=== PATIENT | male | born 1980 | race Caucasian/White ===

== ENCOUNTER 2016-12-29 10:20 | Emergency (ER) | payer OTHER ==
--- NOTE | 2016-12-29 14:43 | RAD ---
HISTORY: Left lower leg weakness and numbness COMPARISONS: Left lower leg numbness TECHNIQUE: The following sequences were obtained of the head: Sagittal T1-weighted images, axial T2-weighted images, axial FLAIR images, axial susceptibility weighted images, axial T1-weighted images. Additionally, axial diffusion-weighted images were obtained with calculated apparent diffusion coefficients. FINDINGS: HEMORRHAGE/INFARCT: There is no hemorrhage or acute infarct. MASSES/SHIFT: There is no mass or shift. EXTRA-AXIAL SPACES/MENINGES: There are no extra-axial fluid collections. SULCI AND VENTRICLES: The sulci and ventricles are normal in size and position for the patient's stated age. CEREBRUM: There are no focal parenchymal abnormalities. BRAINSTEM: There are no focal parenchymal abnormalities. CEREBELLUM: There are no focal parenchymal abnormalities. The cerebellar tonsils are normal in size and position. SELLA: The sella is normal. PINEAL: The pineal region is clear. CP ANGLE/TEMPORAL BONES: The labyrinthine structures are grossly normal. VESSELS: Normal flow-voids are noted within the visualized vertebral vasculature. DIFFUSION ABNORMALITIES: There are no diffusion abnormalities. PARANASAL SINUSES/MASTOIDS: There is mucosal thickening of ethmoid air cells, with opacities in the right frontal sinus and a mucus retention cysts of the right maxillary sinus. There is an air-fluid level within the left maxillary sinus. ORBITS: The orbits are unremarkable. BONES AND SOFT TISSUE: Unremarkable OTHER: None IMPRESSION: 1. MODERATE SINUS MUCOSAL INFLAMMATORY DISEASE, WITH AN AIR-FLUID LEVEL IN THE LEFT MAXILLARY. IN THE CORRECT CLINICAL SETTING, THIS MAY REPRESENT ACUTE SINUSITIS 2. OTHERWISE, UNREMARKABLE MRI OF THE BRAIN
[2016-12-29 15:08] VITALS: BP 132/85
--- NOTE | 2016-12-29 15:49 | ED ---
Ana Nye Rebecca, scribed for Edgard Torres MD on 12/29/16 at 1317 . Neurological HPI - HPI Summary HPI Summary: Pt is a 36 y/o M who presents to ED c/o LLE weakness and numbness. Sx began suddenly this morning upon waking up, at 0730, and have been constant since onset. Reports sensation as "like when your arm or leg falls asleep" on the dorsal side from his knee into the calf, and states that "when I want to walk it just ayana." Notes difficulty standing on toes on L foot. Sx are exclusively present when walking. Sx aggravated by walking, alleviated by sitting. Additionally c/o SALDAÑA, ranked 6/10, characterized as a typical migraine and diffusely located. Denies any pain in the LLE. Denies tingling in LLE, numbness in any other extremities and slurred speech. Reports that HAs are not uncommon. Pt was evaluated by [facility] earlier today where he was given Toradol, which alleviated SALDAÑA. - History of Current Complaint Chief Complaint: EDNeurologicalDeficit Stated Complaint: LT LEG TINGLES/HEADACHE Time Seen by Provider: 12/29/16 13:16 Hx Obtained From: Patient Onset/Duration: Sudden Onset, Started hours ago - 0730, Still Present Timing: Constant Onset Severity: Moderate Current Severity: Moderate Neurological Deficit Location: LLE - Numbness and weakness Pain Intensity: 6 Pain Scale Used: 0-10 Numeric Character: Typical Migraine Aggravating: Exertion - Walking Alleviating: Rest - Sitting down Associated Signs and Symptoms: Positive: Headache. Negative: Impaired Speech - Allergy/Home Medications Allergies/Adverse Reactions: Allergies Allergy/AdvReac Type Severity Reaction Status Date / Time No Known Allergies Allergy Verified 07/17/15 15:30 PMH/Surg Hx/FS Hx/Imm Hx Endocrine/Hematology History: Denies: Hx Diabetes Cardiovascular History: Reports: Hx Hypertension - Surgical History Surgery Procedure, Year, and Place: L hand fusion. R thumb amputation Infectious Disease History: No Infectious Disease History: Denies: Traveled Outside the [place] in Last 30 Days - Family History Known Family History: Positive: Cardiac Disease - father, Hypertension - father , Other - both parents - Social History Alcohol Use: None Substance Use Type: Reports: None, Other Substance Use Comment - Amount & Last Used: pt currently in recovery for opiate addiction Smoking Status (MU): Heavy Every Day Tobacco Smoker Type: Cigarettes Amount Used/How Often: 1 pack daily Review of Systems Negative: Arthralgia - Denies pain in LLE Neurological: Other - Denies tingling Positive: Headache, Weakness - LLE, Numbness - LLE; Denies numbness in any other extremities. Negative: Slurred Speech All Other Systems Reviewed And Are Negative: Yes Physical Exam Triage Information Reviewed: Yes Vital Signs On Initial Exam: Initial Vitals Temp Pulse Resp BP Pulse Ox 98.3 F 73 18 155/95 100 12/29/16 10:23 12/29/16 10:23 12/29/16 10:23 12/29/16 10:23 12/29/16 10:23 Vital Signs Reviewed: Yes Appearance: Positive: Well-Appearing, No Pain Distress Skin: Positive: Warm, Skin Color Reflects Adequate Perfusion, Dry Head/Face: Positive: Normal Head/Face Inspection Eyes: Positive: Normal ENT: Positive: Normal ENT inspection Neck: Positive: Supple, Nontender Respiratory/Lung Sounds: Positive: Clear to Auscultation, Breath Sounds Present Cardiovascular: Positive: RRR Abdomen Description: Positive: Nontender, Soft Bowel Sounds: Positive: Present Musculoskeletal: Positive: Other - Some weakness to plantar flexion of the L foot; No clonus Neurological: Positive: Sensory/Motor Intact, Alert, Oriented to Person Place, Time, CN Intact II-III. Negative: Reflexes Intact - Brisk reflex of the L foot - Paulina Coma Scale Coma Scale Total: 15 Diagnostics - Vital Signs Vital Signs Temp Pulse Resp BP Pulse Ox 12/29/16 12:48 99.8 F 12/29/16 12:34 73 16 145/82 99 12/29/16 11:27 98.4 F 71 16 150/85 100 12/29/16 10:23 98.3 F 73 18 155/95 100 - Laboratory Lab Statement: Any lab studies that have been ordered have been reviewed, and results considered in the medical decision making process. - Radiology Brain MRI Radiology Interpretation Completed By: Radiologist - 1. MODERATE SINUS MUCOSAL INFLAMMATORY DISEASE, WITH AN AIR-FLUID LEVEL IN THE LEFT MAXILLARY. IN THE CORRECT CLINICAL SETTING, THIS MAY REPRESENT ACUTE SINUSITIS 2. OTHERWISE, UNREMARKABLE MRI OF THE BRAIN Re-Evaluation - Re-Evaluation First Eval Re-Evaluation Time: 15:01 Change: Unchanged Comment: Discussed results of MRI with patient. Course/Dx - Course Assessment/Plan: MDM: Pt is a 36 y/o M who presents to ED c/o LLE numbness and weakness when walking since 0730 this morning. Additoinally c/o SALDAÑA (not uncommon , alleviated by Toradol, administered [employer]). Denies tingling, pain in the LLE, sx in any other extremities and slurred speech. Discussed care of pt with Dr. Humphrey, neurologist, who recommended an MRI. Pt will be D/C to home with a Dx of left leg weakness and a followup with his PCP if needed. If his weakness does not resolve on its own he may need an MRI of the LS which he was offered today but refused. - Diagnoses Provider Diagnoses: Left leg weakness - Physician Notifications Discussed Care of Patient With: Dr. Humphrey, neurologist, who recommended an MRI. Time Discussed With Above Provider: 13:36 Discharge - Discharge Plan Condition: Stable Disposition: HOME Patient Education Materials: Weakness (ED) Referrals: Darwin Singh DO [Primary Care Provider] - If Needed (Follow up in 1 or 2 days, if symptoms do not improve. ) The documentation as recorded by the Ana foley Rebecca accurately reflects the service I personally performed and the decisions made by me, Edgard Torres MD.
== END 2016-12-29 15:13 | disposition home or self-care (01) ==
LOC: ED 10:20
DX: R53.1 Weakness (principal); R51 Headache
CPT/HCPCS: 70551; 99282

== ENCOUNTER 2017-01-04 12:27 | Emergency (ER) | payer OTHER ==
[2017-01-04 12:51] VITALS: BP 160/90
--- NOTE | 2017-01-04 13:48 | UC ---
Headache HPI - HPI Summary HPI Summary: 36 yo male with a two week hx of headaches Has had 4 severe headaches that lasted for hours to days Currently no headache For one week he has had left leg weakness He has also had left leg numbness and tingling the weakness has started to resolve for one week he has had trouble initiating his stream of urination It feels like he has to go and it often takes minutes to start now unable to achieve an erection NO low back pain NO f/c NO tick bite had a normal brain MRI 12/29 currently no pain - History Of Current Complaint Chief Complaint: UCGeneralIllness Stated Complaint: LEFT LEG NUMBNESS,MIGRIANE,URINARY Time Seen by Provider: 01/04/17 13:00 Hx Obtained From: Patient Onset/Duration: Sudden Onset, Lasting Weeks Initially Headache Was: Severe Currently Pain Is: Current Pain Scale(0-10)= - 0 Pain Intensity: 0 Pain Scale Used: 0-10 Numeric Timing: Intermittent, Lasting: - hours to days Character: Throbbing - holocranial Location of Headache: Diffuse Aggravating Factor: Nothing Allevating Factors: Nothing Associated Signs And Symptoms: Positive: Other (Noted In Comments). Negative: Dizziness, Seizure, Nausea, Vomiting, Sinus Pressure, Fever, Neck Pain, Neck Stiffness, Decreased LOC, Visual Changes - Allergies/Home Medications Allergies/Adverse Reactions: Allergies Allergy/AdvReac Type Severity Reaction Status Date / Time No Known Allergies Allergy Verified 07/17/15 15:30 Home Medications: Home Medications Aspirin [Aspirin 81 MG TAB] 81 mg PO DAILY 01/04/17 [History Confirmed 01/04/17] PMH/Surg Hx/FS Hx/Imm Hx Previously Healthy: Yes - hx opiate abuse-sober 4 yrs Endocrine History Of: Denies: Diabetes Cardiovascular History Of: Reports: Hypertension Denies: Pacemaker/ICD - Surgical History Surgical History: Yes Surgery Procedure, Year, and Place: L hand fusion. R thumb amputation - Family History Known Family History: Positive: Cardiac Disease - father, Hypertension - father , Other - both parents - Social History Alcohol Use: None Substance Use Type: None, Other Substance Use Comment - Amount & Last Used: pt currently in recovery for opiate addiction Smoking Status (MU): Heavy Every Day Tobacco Smoker Type: Cigarettes Amount Used/How Often: 1 pack daily Length of Time of Smoking/Using Tobacco: started at age 13 Have You Smoked in the Last Year: Yes - Immunization History Most Recent Tetanus Shot: within 2 years. Review of Systems Constitutional: Negative Skin: Negative Eyes: Negative ENT: Negative Respiratory: Negative Cardiovascular: Negative Gastrointestinal: Negative Genitourinary: Negative Motor: Negative Neurovascular: Negative Musculoskeletal: Negative Neurological: Headache - not currently, Weakness - left leg, Numbness - left leg Psychological: Negative All Other Systems Reviewed And Are Negative: Yes Physical Exam Triage Information Reviewed: Yes Appearance: Well-Appearing, No Pain Distress, Well-Nourished Vital Signs: Initial Vital Signs Temp 99.4 F 01/04/17 12:38 Pulse 77 01/04/17 12:38 Resp 14 01/04/17 12:38 BP 160/90 01/04/17 12:38 Pulse Ox 99 01/04/17 12:38 Eyes: Positive: Conjunctiva Clear, Other: - fundi benign ENT: Positive: Hearing grossly normal. Negative: Nasal congestion, Nasal drainage, Trismus, Muffled/hoarse voice Neck: Positive: Supple, Nontender, No Lymphadenopathy, Other: - no bruits Respiratory: Positive: Lungs clear, Normal breath sounds, No respiratory distress, No accessory muscle use Cardiovascular: Positive: RRR, No Murmur Musculoskeletal: Positive: ROM Intact, No Edema, Other: - mild left leg weakness Neurological Exam: Other - cn2-12 intact, brisk knee jerk reflexes, mild left leg ataxia, absent left leg ankle jerk Neurological: Positive: Alert Psychological Exam: Normal Headache Course/Dx - Course Course Of Treatment: d/w [facility]. pt going POV - Differential Dx/Diagnosis Differential Diagnosis/HQI/PQRI: Other - MS/transverse myelitis/other Provider Diagnoses: headaches. left leg weakness/numbness. trouble voiding and achieving an erection. all of uncertain cause Discharge - Discharge Plan Condition: Stable Disposition: AGAINST MEDICAL ADVICE Referrals: Darwin Singh DO [Primary Care Provider] -
== END 2017-01-04 13:47 | disposition left against medical advice (07) ==
LOC: UCCORT 12:27
DX: R51 Headache (principal); M62.81 Muscle weakness (generalized); R20.0 Anesthesia of skin; N39.8 Other specified disorders of urinary system; N52.9 Male erectile dysfunction, unspecified; I10 Essential (primary) hypertension; F17.210 Nicotine dependence, cigarettes, uncomplicated
CPT/HCPCS: 81003; 99213; G0463

== ENCOUNTER 2017-07-09 18:37 | Emergency (ER) | payer OTHER ==
--- NOTE | 2017-07-09 19:08 | UC ---
Complaint Male HPI - HPI Summary HPI Summary: 37 year old male presents with complains of left inguinal hernia. - History of Current Complaint Stated Complaint: PERSONAL Time Seen by Provider: 07/09/17 19:08 Hx Obtained From: Patient Onset/Duration: Lasting Days Timing: Constant Severity Initially: Moderate Severity Currently: Moderate - Allergies/Home Medications Allergies/Adverse Reactions: Allergies Allergy/AdvReac Type Severity Reaction Status Date / Time No Known Allergies Allergy Verified 07/09/17 19:11 Home Medications: Home Medications Atorvastatin* [Lipitor*] 10 mg PO DAILY 07/09/17 [History Confirmed 07/09/17] PMH/Surg Hx/FS Hx/Imm Hx Previously Healthy: Yes - Surgical History Surgical History: Yes Surgery Procedure, Year, and Place: L hand fusion. R thumb amputation - Family History Known Family History: Positive: Cardiac Disease - father, Hypertension - father , Other - both parents - Social History Alcohol Use: None Substance Use Type: None, Other Substance Use Comment - Amount & Last Used: pt currently in recovery for opiate addiction Smoking Status (MU): Heavy Every Day Tobacco Smoker Type: Cigarettes Amount Used/How Often: 1 pack daily Length of Time of Smoking/Using Tobacco: started at age 13 Have You Smoked in the Last Year: Yes - Immunization History Most Recent Tetanus Shot: within 2 years. Review of Systems Constitutional: Negative Skin: Negative Eyes: Negative ENT: Negative Respiratory: Negative Cardiovascular: Negative Gastrointestinal: Negative Genitourinary: Negative Motor: Negative Neurovascular: Negative Musculoskeletal: Other: - left inguinal hernia Neurological: Negative Psychological: Negative Is Patient Immunocompromised?: Yes All Other Systems Reviewed And Are Negative: Yes Physical Exam Triage Information Reviewed: Yes Vital Signs Reviewed: Yes Eye Exam: Normal ENT Exam: Normal Dental Exam: Normal Neck exam: Normal Neck: Positive: 1 Respiratory Exam: Normal Cardiovascular Exam: Normal Abdominal Exam: Normal Musculoskeletal: Positive: Other: - left inguinal hernia Neurological Exam: Normal Psychological Exam: Normal Skin Exam: Normal Complaint Male Course/Dx - Differential Dx/Diagnosis Provider Diagnoses: left inguinal hernia Discharge - Discharge Plan Condition: Stable Disposition: HOME Patient Education Materials: Inguinal Hernia (ED) Referrals: Darwin Singh DO [Primary Care Provider] - Gavin Hodges MD [Medical Doctor] -
[2017-07-09 19:11] VITALS: BP 158/96
== END 2017-07-09 19:31 | disposition home or self-care (01) ==
LOC: UCCORT 18:37
DX: K40.90 Unilateral inguinal hernia, without obstruction or gangrene, not specified as recurrent (principal); Z89.011 Acquired absence of right thumb; F17.210 Nicotine dependence, cigarettes, uncomplicated
CPT/HCPCS: 99211; G0463

== ENCOUNTER 2017-09-28 16:30 | Emergency (ER) | payer OTHER ==
[2017-09-28 19:06] VITALS: BP 155/105
--- NOTE | 2017-09-28 19:24 | UC ---
Back Pain HPI - HPI Summary HPI Summary: Pt c/o sudden onset low back pain that radiates down bilateral buttocks and left posterior upper thigh . Denies bladder or bowel incontinence. Perez shistory of low back pain - History of Current Complaint Chief Complaint: UCBackPain Stated Complaint: BACK PAIN Time Seen by Provider: 09/28/17 18:59 Hx Obtained From: Patient Onset/Duration: Sudden Onset, Lasting Days, Still Present Timing: Constant Severity Initially: Moderate Severity Currently: Moderate Pain Intensity: 8 Back Pain: Is Discrete @ - low back Character: Dull, Aching, Spasmodic, Stiffness Aggravating Factor(s): Movement, Lifting, Bending Alleviating Factor(s): Rest, Position Associated Signs And Symptoms: Positive: Negative Related History: Similar Episode Dx As - low back strain - Risk Factors AAA Risk Factors: Negative TAD Risk Factors: Negative Cauda Equina Risk Factors: Negative Epidural Abscess Risk Factors: Negative - recovering drug/alcohol addict - Allergies/Home Medications Allergies/Adverse Reactions: Allergies Allergy/AdvReac Type Severity Reaction Status Date / Time No Known Allergies Allergy Verified 09/28/17 18:56 PMH/Surg Hx/FS Hx/Imm Hx Previously Healthy: Yes - Surgical History Surgical History: Yes Surgery Procedure, Year, and Place: L hand fusion. R thumb amputation - Family History Known Family History: Positive: Cardiac Disease - father, Hypertension - father , Other - both parents - Social History Lives: With Family Alcohol Use: None Substance Use Type: None, Other Substance Use Comment - Amount & Last Used: SOBER 5 YEARS Smoking Status (MU): Heavy Every Day Tobacco Smoker Type: Cigarettes Amount Used/How Often: 1 pack daily Length of Time of Smoking/Using Tobacco: started at age 13 Have You Smoked in the Last Year: Yes - Immunization History Most Recent Tetanus Shot: within 2 years. Review of Systems Constitutional: Negative Skin: Negative Eyes: Negative ENT: Negative Respiratory: Negative Cardiovascular: Negative Gastrointestinal: Negative Genitourinary: Negative Motor: Decreased ROM - low back Neurovascular: Negative Musculoskeletal: Decreased ROM - low back, Myalgia - low back Neurological: Negative Psychological: Negative Is Patient Immunocompromised?: No All Other Systems Reviewed And Are Negative: Yes Physical Exam Triage Information Reviewed: Yes Appearance: Pain Distress Vital Signs: Initial Vital Signs Temp 99 F 09/28/17 18:57 Pulse 95 09/28/17 18:57 Resp 16 09/28/17 18:57 BP 155/105 09/28/17 18:57 Pulse Ox 100 09/28/17 18:57 Vital Signs Reviewed: Yes Eye Exam: Normal ENT Exam: Normal Neck exam: Normal Respiratory Exam: Normal Musculoskeletal Exam: Other Musculoskeletal: Positive: ROM Limited @ - low back Neurological Exam: Normal Psychological Exam: Normal Skin Exam: Normal Back Pain Course/Dx - Course Course Of Treatment: I discussed with the pt his elevated bp. Pt statd he was out of his clonidine and is supposed to see a new PCP next week. - Differential Dx/Diagnosis Differential Diagnosis/HQI/PQRI: Herniated Disc, Strain, Sprain Provider Diagnoses: Low back strain. elevated BP Discharge - Discharge Plan Condition: Stable Disposition: HOME Prescriptions: cloNIDine TAB* [Catapres 0.1 MG TAB*] 0.1 mg PO DAILY #10 tab Cyclobenzaprine TAB* [Flexeril 10 MG TAB*] 10 mg PO Q8H PRN #21 tab PRN Reason: Pain predniSONE TAB* [Deltasone TAB*] 40 mg PO DAILY #8 tab Patient Education Materials: Acute Low Back Pain (ED), Lower Back Exercises (ED ) Referrals: No Primary Care Phys,NOPCP [Primary Care Provider] - Additional Instructions: Please keep you appointment with your PCP next week. Please follow up with them or return to clinic as needed.
== END 2017-09-28 19:36 | disposition home or self-care (01) ==
LOC: UCCORT 16:30
DX: S39.012A Strain of muscle, fascia and tendon of lower back, initial encounter (principal); R03.0 Elevated blood-pressure reading, without diagnosis of hypertension; F17.210 Nicotine dependence, cigarettes, uncomplicated; Z82.49 Family history of ischemic heart disease and other diseases of the circulatory system; X58.XXXA Exposure to other specified factors, initial encounter
CPT/HCPCS: 99212; G0463